=== PATIENT | female | born 1990 | race African-American/Black ===

== ENCOUNTER 2019-04-14 14:41 | Emergency (ER) | payer OTHER ==
[~2019-04-14] VITALS: Ht 165.1 cm; Wt 86.2 kg
[2019-04-14] MEDS ORDERED: IBUPROFEN 800800 M1 PO (16:01)
[2019-04-14 16:31] VITALS: BP 121/72
== END 2019-04-14 16:31 | disposition home or self-care (01) ==
LOC: ER 14:41
DX: S30.0XXA Contusion of lower back and pelvis, initial encounter (principal); W10.9XXA Fall (on) (from) unspecified stairs and steps, initial encounter; Y92.89 Other specified places as the place of occurrence of the external cause; Y93.89 Activity, other specified; Y99.8 Other external cause status